=== PATIENT | female | born 1995 | race Caucasian/White ===

== ENCOUNTER 2017-06-13 10:03 | Emergency (ER) | END 2017-06-13 14:05 | disposition home or self-care (01) ==

== ENCOUNTER 2017-10-12 15:03 | Emergency (ER) | END 2017-10-12 17:12 | disposition home or self-care (01) ==

== ENCOUNTER 2018-02-06 15:44 | Emergency (ER) | END 2018-02-06 17:24 | disposition home or self-care (01) ==

== ENCOUNTER 2018-10-29 20:24 | Emergency (ER) | payer SELFPAY ==
[~2018-10-29] VITALS: Ht 162.6 cm; Wt 101.2 kg
[~2018-10-29 20:24] MED LIST: BACL10TA PO; CALC-516 PO; CEPH-443 PO; CYCL10TA7 PO; FERR325C PO; IBUP-1542 PO; IBUP800T48 PO; METR500T PO; NAPR-985 PO; PREN1TAB62 PO
[2018-10-29 21:47] VITALS: BP 122/68; PULSE 82; RESP 20; Ht 162.6 cm; Wt 101.2 kg
== END 2018-10-29 22:41 | disposition left against medical advice (07) ==
LOC: E/R 20:24
DX: Z53.21 Procedure and treatment not carried out due to patient leaving prior to being seen by health care provider (principal)

== ENCOUNTER 2018-10-30 11:16 | Emergency (ER) | payer OTHER ==
[~2018-10-30] VITALS: Ht 167.6 cm; Wt 80.0 kg
[2018-10-30 11:26] VITALS: BP 126/81; PULSE 100; RESP 17; Ht 167.6 cm; Wt 80.0 kg
[2018-10-30] MEDS ORDERED: ACETAMINOPHEN 500 MG TAB PO STA (11:29)
--- NOTE | 2018-10-30 12:35 | ERD ---
ER Documentation Chief Complaint Chief Complaint GROUND LEVEL FALL TODAY. C/O GROIN AND BACK PAIN. 19 WEEKS NO AP HPI Very pleasant 23-year-old female who is a G2, P1 at approximately 19 weeks who presents to the emergency room with left groin pain left lower extremity pain and right young pain status post mechanical slip and fall. Just prior to arrival she slipped getting out of the bathroom. The patient did not hit her head or lo se consciousness. She did not land on her abdomen she notes moderate throbbing pain and contusion to the right young. She notes pain to the majority of her left lower extremity. There is mild abdominal cramping and mild lumbar back discomfort. No spotting or bleeding. ROS All systems reviewed and are negative except as per history of present illness. Medications Home Meds Active Scripts Metronidazole* (Flagyl*) 500 Mg Tablet, 500 MG PO BID for 7 Days, TAB Prov:AKIKO TAI PA-C 02/06/18 Cephalexin* (Keflex*) 500 Mg Capsule, 500 MG PO BID for 7 Days, CAP Prov:AKIKO TAI PA-C 02/06/18 Baclofen* (Baclofen*) 10 Mg Tablet, 10 MG PO QHS for 5 Days, TAB Prov:JACQUELINE JUNIOR MD 10/12/17 Naproxen* (Naprosyn*) 500 Mg Tablet, 500 MG PO BID PRN for PAIN AND/OR INFLAMMATION, #15 TAB Prov:JACQUELINE JUNIOR MD 10/12/17 Cyclobenzaprine Hcl* (Cyclobenzaprine Hcl*) 10 Mg Tablet, 10 MG PO TID, #20 TAB Prov:KENDRICK MCGREGOR MD 06/13/17 Ibuprofen* (Motrin*) 800 Mg Tab, 800 MG PO Q6H PRN for PAIN AND OR ELEVATED TEMP, #30 TAB Prov:KENDRICK MCGREGOR MD 06/13/17 Ibuprofen* (Ibuprofen*) 600 Mg Tablet, 600 MG PO Q6, #20 TAB 0 Refills Prov:MADELIN SUE MD 03/12/16 Reported Medications Calcium Carbonate/Vitamin D3 (OYSTER SHELL CALCIUM TABLET) 1 Each Tablet, 1 EACH PO DAILY, TAB 02/24/16 Ferrous Sulfate (Iron) 325 Mg Capsule.er, 325 MG PO DAILY, CAP 02/24/16 Vit-Iron Fumarate-FA ( Vitamin Tablet) 1 Each Tablet, 1 TAB PO DAILY, TAB 01/29/16 Allergies Allergies: Coded Allergies: No Known Allergy (Unverified , 02/06/18) PMhx/Soc Medical and Surgical Hx: pt denies Medical Hx, pt denies Surgical Hx History of Surgery: No Anesthesia Reaction: No Hx Neurological Disorder: No Hx Respiratory Disorders: No Hx Cardiac Disorders: No Hx Psychiatric Problems: No Hx Miscellaneous Medical Probl: No Hx Alcohol Use: No Hx Substance Use: No Hx Tobacco Use: No Smoking Status: Never smoker FmHx Family History: No diabetes Physical Exam Vitals Vital Signs Date Temp Pulse Resp B/P (MAP) Pulse Ox O2 O2 Flow FiO2 Time Delivery Rate 10/30/18 98.4 100 17 126/81 100 11:26 (96) Physical Exam General: Well developed, well nourished, no acute distress Head: Normocephalic, atraumatic. Eyes: Pupils equally reactive, EOM intact ENT: Moist mucous membranes Neck: Supple, no lymphadenopathy Respiratory: Lungs clear bilaterally, no distress Cardiovascular: RRR, no murmurs, rubs, or gallops Abdominal: Soft, gravid, non-tender, non-distended, no peritoneal signs : Deferred MSK: Contusion and abrasion noted to the right lower extremity, mid young. No bony abnormality's or deformities to the bones. Full active and passive range of motion of the knee and ankle. Left lower extremity with mild diffuse tenderness without localization. The patient has no limited range of motion at the hip knee or ankle. No bony abnormality's are noted. No significant contusions. Neurologic: Alert and oriented, moving all extremities, normal speech, no focal weakness, no cerebellar signs Skin: No rash Psych: Normal mood Results 24 hrs Current Medications Medications Dose Sig/Jackson Start Time Status Last (Trade) Ordered Route PRN Stop Time Admin Dose Reason Admin 1,000 mg ONCE STAT 10/30/18 DC 10/30/18 Acetaminophen PO 11:29 10/30/18 11:37 (Tylenol 11:30 Tab) Procedures/MDM EKG, MONITORS, & DIAGNOSTIC IMAGING: Pelvic ultrasound: IMPRESSION: Single live intrauterine gestation of 18 weeks 6 days by ultrasound criteria. MEDICAL DECISION MAKING: Patient with mechanical slip and fall. The patient has evidence of a contusion with likely strain of the left lower extremity. The patient is having abdominal cramping and is . From a traumatic stay when the patient is no evidence of fracture. She is ambulatory in the emergency room setting. Localized wound care is provided. Tylenol provided. Ice and compression would be most appropriate with expectant management of sprains and strains. I discussed the case with labor and delivery however the state that since the patient is not 20 weeks they cannot evaluate her in L&D triage. Dr. Webb recommends formal ultrasound and if normal the patient can be safely discharged given estimated dates. ER COURSE: * Wound care provided. Tylenol provided. Ultrasound reassuring. Patient given return precautions and can be safely discharged home. Outpatient MANAGER [facility] follow-up appropriate given abdominal cramping. CONSULTATION: [None] DISPOSITION PLAN: The patient does not have an identifiable emergent medical condition that warrants inpatient hospitalization at this time. The patient is deemed safe for discharge with outpatient follow-up. We discussed follow up with the patient's primary care doctor within 24 to 48 hours as needed. We also discussed return to the emergency room for worsening symptoms or worsening condition. Outpatient referral: MANAGER [facility] Discharge Medications: [id number] Tylenol as needed Departure Diagnosis: Primary Impression: Contusion Encounter type: initial encounter Contusion area: lower leg Laterality: right Qualified Codes: S80.11XA - Contusion of right lower leg, initial encounter Additional Impression: Strain of left knee and leg Encounter type: initial encounter Qualified Codes: S86.912A - Strain of unspecified muscle(s) and tendon(s) at lower leg level, left leg, initial encounter Condition: Stable Patient Instructions: Contusion, Lower Extremity Additional Instructions: Llame al doctor lilian lacy (Referral Sources) MAANA y daksha ashwin ERICK PARA DENTRO DE ASHWIN SEMANA. Dgale a la secretaria que nosotros le instruimos hacer esta erick.Avise o llame si suarez condicin se empeora antes de la erick. GINA COLLIER MD Oct 30, 2018 12:35
== END 2018-10-30 12:41 | disposition home or self-care (01) ==
LOC: E/R 11:16
DX: O9A.212 Injury, poisoning and certain other consequences of external causes complicating pregnancy, second trimester (principal); S80.11XA Contusion of right lower leg, initial encounter; S86.912A Strain of unspecified muscle(s) and tendon(s) at lower leg level, left leg, initial encounter; R10.9 Unspecified abdominal pain; S80.212A Abrasion, left knee, initial encounter; W01.0XXA Fall on same level from slipping, tripping and stumbling without subsequent striking against object, initial encounter; Y92.9 Unspecified place or not applicable; Z3A.18 18 weeks gestation of pregnancy
CPT/HCPCS: 76805; Z7502; Z7610

== ENCOUNTER 2018-11-13 11:45 | Outpatient (CLI) | payer OTHER ==
[~2018-11-13] VITALS: Ht 162.6 cm; Wt 99.9 kg
[2018-11-13 12:33] VITALS: Ht 162.6 cm; Wt 99.9 kg
--- NOTE | 2018-11-13 15:56 | TRIAGE ---
OB Triage Datetime Report Generated by CPN: 11/13/2018 15:56 Datetime: 11/13/2018 15:08 Labor Evaluation Frequency: 0 Monitor Mode: External Pattern: Normal: <= 5 Contractions in 10 Minutes Resting Tone Alverda: Relaxed Comments: REMOVED DUE TO GESTATIONAL AGE Pain Assessment Pain Scale: 3 Pain Presence: Constant Pain Type: Ache Pain Location: Back Pain Goal: 3 Pain Relief Measures: Comfort Measures Datetime: 11/13/2018 14:11 Labor Evaluation Frequency: 0 Monitor Mode: External Pattern: Normal: <= 5 Contractions in 10 Minutes Resting Tone Alverda: Relaxed Comments: REMOVED DUE TO GESTATIONAL AGE Pain Assessment Pain Scale: 0 Pain Presence: None/Denies Pain Type: N/A Pain Goal: 3 Pain Relief Measures: Comfort Measures Datetime: 11/13/2018 13:50 Stage of : OB Triage Datetime: 11/13/2018 13:10 Labor Evaluation Frequency: 0 Monitor Mode: External Pattern: Normal: <= 5 Contractions in 10 Minutes Resting Tone Alverda: Relaxed Comments: REMOVED DUE TO GESTATIONAL AGE Pain Assessment Pain Scale: 2 Pain Presence: Constant Pain Type: Ache Pain Location: Back Pain Goal: 3 Pain Relief Measures: Comfort Measures Datetime: 11/13/2018 12:35 Stage of : OB Triage Datetime: 11/13/2018 12:27 Stage of : OB Triage Datetime: 11/13/2018 12:14 Stage of : OB Triage Assessment Type: Triage Maternal Assessment Level of Consciousness: Keenly Alert, Responsive DTR's/Clonus: DTRs 2+; No Clonus Headache: Denies Blurred Vision: No Respiratory Effort: Unlabored; Regular Rhythm; Equal Expansion Breath Sounds, Left: Clear and Equal Breath Sounds, Right: Clear and Equal Nausea/Vomiting: Denies RUQ Epigastric Pain: Denies Facial Edema: None Temperature Route: Axillary Fall Risk Assessment History of Falling: (0) No Secondary Diagnosis: (0) No Ambulatory Aid: (0) Bedrest/Nurse Assist IV Therapy: (0) No Gait: (0) Normal/Bedrest/Immobile Mental Status: (0) Oriented to Own Ability Fall Score: 0 Fall Risk Score Definition: No Risk: No action required Labor Evaluation Frequency: 0 Monitor Mode: External Pattern: Normal: <= 5 Contractions in 10 Minutes Resting Tone Alverda: Relaxed Heart Rate FHR Baseline Rate: 155 (Annotations: X1 MINUTE) Monitor Mode: External US Accelerations: None Decelerations: None Pain Assessment Pain Scale: 6 Pain Presence: Intermittent Pain Type: Cramping Pain Location: Perineum; Left Flank Pain Goal: 3 Pain Relief Measures: Comfort Measures Datetime: 11/13/2018 12:13 Time of Arrival: 11/06/2018 11:40 EGA: 20.4 Arrived By: Ambulatory Arrived From: Home Chief Complaint: C/O PAIN ON URINATION,AND ABDOMINAL CRAMPING, VERY SLIGHT BLOOD TINGED VAGINAL MU CUS, DENIES LEAKING Movement: Present Contractions: Denies/Absent Rupture of Membranes: Denies Vaginal Bleeding: Scant Vaginal Discharge: Present Recent Sexual Intercouse: Denies Abdominal Trauma: Not Applicable Patient Complaints: Cramping; Pain on Urination Time Provider Notified: 11/13/2018 12:27 Provider Notified: gabriela Initial Plan: MONITOR, CL, CBC, ua, kidney u/s
--- NOTE | 2018-11-13 16:53 | PN ---
Triage Information Date/Time Reason for visit: Abd/pelvic pain Weeks of Gestation 21-week and 4 days /Para Diabetes: none Hypertention: none Objective Heart Rate: 140's Contractions: None Results/Medications Result Diagram: 11/13/18 1241 Results 24 hrs Laboratory Tests Test 11/13/18 12:00 11/13/18 12:41 Urine Color YELLOW Urine Clarity CLEAR Urine pH 6.0 Urine Specific [place] 1.020 Urine Ketones 2+ H Urine Nitrite NEGATIVE Urine Bilirubin NEGATIVE Urine Urobilinogen NEGATIVE Urine Leukocyte Esterase NEGATIVE Urine Microscopic RBC 1 Urine Microscopic WBC 1 Urine Mucus MODERATE Urine Hemoglobin 1+ H Urine Glucose 2+ H Urine Total Protein NEGATIVE White Blood Count 5.3 # Red Blood Count 3.62 L Hemoglobin 10.1 L Hematocrit 31.2 L Mean Corpuscular Volume 86.2 Mean Corpuscular Hemoglobin 27.9 L Mean Corpuscular Hemoglobin Concent 32.4 Red Cell Distribution Width 13.4 Platelet Count 224 Mean Platelet Volume 10.5 H Immature Granulocytes % 0.400 Neutrophils % 64.7 Lymphocytes % 28.6 Monocytes % 5.7 Eosinophils % 0.6 Basophils % 0.0 Nucleated Red Blood Cells % 0.0 Immature Granulocytes # 0.020 Neutrophils # 3.4 Lymphocytes # 1.5 Monocytes # 0.3 Eosinophils # 0.0 Basophils # 0.0 Nucleated Red Blood Cells # 0.0 Disposition: Discharge Assessment/Plan 23 years old 2 para 1-0-0-1 with single intrauterine at 21 weeks and 4 days with a CALIX[place] of 03/22/2019 complaining of left flank and lower abdominal pain. She states good movement. She denies nausea, vomiting, shortness of breath, chest pain, headache, visual changes, vaginal bleeding or LOF. -FHR: No sign of metabolic acidosis- Category I -Contractions: None -Her exam was unremarkable except mild left flank pain, urinalysis performed which was normal except 2+ ketones. Renal ultrasound with mild bilateral hydronephrosis, no nephrolithiasis -Ultrasound performed: Normal KIAH and cervical length -Symptoms and sign of labor, preeclampsia, kick count discussed with patient, she voiced understanding. All of her questions answered. -Patient was discharged home in stable condition with the appropriate discharge instructions provided. I would like patient to have close follow-up with her primary physician or outpatient clinic in 1-2 days or return to triage for worsening symptoms or any other urgent concerns. ADITI WILLETT Nov 13, 2018 16:53
== END 2018-11-13 15:50 | disposition home or self-care (01) ==
LOC: OBT 11:45 → L-D 11:46 → OBT 15:50
PROVIDERS: ATTEND Obstetrics & Gynecology
DX: O26.892 Other specified pregnancy related conditions, second trimester (principal); R10.30 Lower abdominal pain, unspecified; Z3A.21 21 weeks gestation of pregnancy
CPT/HCPCS: 76775; 76817; 81001; 85025; 87086; Z7500; G0463

== ENCOUNTER 2019-03-18 15:16 | Outpatient (CLI) | payer OTHER ==
[~2019-03-18] VITALS: Ht 162.6 cm; Wt 100.8 kg
[~2019-03-18 15:16] MED LIST changes: -BACL10TA PO; +CALC600T24 PO; -CYCL10TA7 PO; +FER325 PO; +HYDR-4011 PO; -IBUP800T48 PO; -METR500T PO; -NAPR-985 PO; +ONDA8TAB14 PO
[2019-03-18 15:55] VITALS: BP 120/67; PULSE 76; RESP 18
[2019-03-18] MEDS ORDERED: LACTATED RINGER'S 1,000 ML IV SCH (16:47)
== END 2019-03-18 18:59 | disposition home or self-care (01) ==
LOC: OBT 15:16 → L-D 15:17 → OBT 18:59
PROVIDERS: ATTEND Obstetrics & Gynecology
DX: O62.9 Abnormality of forces of labor, unspecified (principal); Z3A.39 39 weeks gestation of pregnancy
CPT/HCPCS: 36415; 76818; 96360; J7120; Z7500; G0463